=== PATIENT | male | born 2000 | race African-American/Black ===

== ENCOUNTER 2021-07-30 14:15 | Emergency (ER) | payer BC ==
[~2021-07-30] VITALS: Ht 188 cm; Wt 113.4 kg
[2021-07-30 14:19] VITALS: BP 140/83
[2021-07-30] MEDS ORDERED: PEPCID20 MG PO (15:21)
[2021-07-30] MEDS ORDERED: NAPROSYN500 M1 PO (15:21)
== END 2021-07-30 15:33 | disposition home or self-care (01) ==
LOC: ER 14:15
DX: R07.0 Pain in throat (principal); F12.90 Cannabis use, unspecified, uncomplicated; Z91.013 Allergy to seafood